=== PATIENT | female | born 1960 | race Caucasian/White ===

== ENCOUNTER 2023-05-28 11:47 | Day surgery (SDC) | payer BC ==
[~2023-05-28] VITALS: Ht 162.6 cm; Wt 60.4 kg
[2023-05-28] MEDS ORDERED: GABAPENTIN600 MG PO (12:05)
[2023-05-28] MEDS ORDERED: SYNTHROID50 MC1 PO (12:05)
[2023-05-28] MEDS ORDERED: ESTRADIOL10 MCG VG (12:06)
[2023-05-28] MEDS ORDERED: ERGO400 (12:06)
[2023-05-28 13:35] VITALS: BP 101/67
--- NOTE | 2023-05-28 13:37 | NUR ---
05/28/23 1337 Rima Ware IV REMOVED, SITE WNL, CATH INTACT
== END 2023-05-28 13:38 | disposition home or self-care (01) ==
LOC: ORSCSDS 11:47
PROVIDERS: Surgery
PROC: 0DJD8ZZ Inspection of Lower Intestinal Tract, Via Natural or Artificial Opening Endoscopic (ICD-10-PCS; principal; 2023-05-28 13:00)
DX: Z12.11 Encounter for screening for malignant neoplasm of colon (principal); Z79.899 Other long term (current) drug therapy
CPT/HCPCS: J2704; J7120

== ENCOUNTER 2024-08-04 06:58 | Emergency (ER) | payer BC ==
[~2024-08-04] VITALS: Ht 162.6 cm; Wt 64.9 kg
[~2024-08-04 06:58] MED LIST: ERGO400; ESTRADIOL10 MCG VG; GABAPENTIN600 MG PO; SYNTHROID50 MC1 PO
[2024-08-04] MEDS ORDERED: Ketorolac Tromethamine 30mg Vial IM ONE (08:20)
[2024-08-04] MEDS ORDERED: Diazepam 2 MG Tab PO ONE (08:20)
[2024-08-04] MEDS ORDERED: GABA300 PO ×2 (08:48→08:49)
[2024-08-04] MEDS ORDERED: DIAZ2 PO ×2 (08:48→08:49)
[2024-08-04 09:25] VITALS: BP 136/69
== END 2024-08-04 09:26 ==
LOC: ER 06:58
DX: M54.16 Radiculopathy, lumbar region (principal); E03.9 Hypothyroidism, unspecified; Z79.899 Other long term (current) drug therapy
CPT/HCPCS: 73502; 99283-25; A9270; J1885